=== PATIENT | male | born 1980 | race Caucasian/White ===

== ENCOUNTER → 2024-08-16 | Day surgery (SDC) | payer BC ==
--- NOTE | 2024-08-15 11:48 | EKG ---
Test Date: 2024-08-14 Test Time: 13:47:09 Cableman: VERONICA MEASUREMENT RESULTS: Intervals: Rate: 55 IN: 178 QRSD: 116 QT: 418 QTc: 399 [place]: P: 59 IN: 178 QRS: 69 T: 54 INTERPRETIVE STATEMENTS: Sinus bradycardia with sinus arrhythmia Possible Left atrial enlargement Borderline ECG Compared to ECG 05/27/1999 10:38:00 No significant changes Electronically Signed On 08-15-24 11:48:23 CDT by Guillermo Butler
[~2024-08-16] MED LIST: FENTANYL CITR 100 MCG/2 ML ONE; LIDOCAINE 1% MPF 5 ML VIAL ONE; MIDAZOLAM HCL 2 MG/2 ML INJ ONE; ONDANSETRON 4 MG/2 ML VIAL ONE; propofoL 200 MG/20 ML VIAL IV ONE
[2024-08-16] MEDS: Ringers Lactate 1,000 ML IV ONE (11:27)
[2024-08-16] MEDS: CEFAZOLIN SODIUM 2 GM/VIAL ONE (14:50)
[2024-08-16] MEDS: LIDOCAINE HCL/EPINEPHRINE 20 ML MDV ONE (14:57)
--- NOTE | 2024-08-16 15:05 | P.OP ---
Preoperative diagnosis: LEFT AC Fossa foreign body Postoperative diagnosis: LEFT AC Fossa foreign body Primary procedure: Removal of LEFT AC Fossa foreign body Anesthesia: GETA + Local Estimated blood loss: <2cc Specimen: LEFT AC Fossa foreign body - Berilium Findings: Metallic Fragment adjacent to cephalic vein Complications: None Transferred to: Recovery Room Condition: Good
[2024-08-16 15:35] VITALS: O2SAT 100
[2024-08-16 16:41] VITALS: BP 108/77; TEMP 97
--- NOTE | 2024-08-16 20:35 | OP ---
Date of Procedure: 08/16/2024 Surgeon: Kishore Thomas MD, Preoperative Diagnosis: Left antecubital fossa foreign body. Postoperative Diagnosis: Left antecubital fossa foreign body. Procedure Performed: Removal of left antecubital fossa foreign body. Anesthesia: General endotracheal plus local 1% lidocaine with epinephrine. Estimated Blood Loss: 2 cc. Specimens: Left AC fossa foreign body consistent with a metallic object consistent with possible jb yllium. Findings: Metallic fragment adjacent to the cephalic vein. Complications: None. Disposition: The patient was transferred recovery room in good condition. Procedure In Detail: After informed consent was obtained, patient was brought to the operating room, prepped in the usual fashion. After adequate anesthesia was achieved, I made an elliptical incision around the area where an obvious foreign body was emanating from the left AC fossa. I dissected vishnu n to subcutaneous tissues using sharp and blunt dissection as well as a 15 blade ultimately dissectin g down to find the end of this foreign body, which was adjacent to cephalic vein. I was able to rosalina ve this without injuring the cephalic vein or causing any compromise to this area. Did not require a ny vascular control at this point. I removed the foreign body in its entirety, sent it off for patho logical examination. The area was copiously irrigated. Hemostasis was achieved with minimal electro cautery. I then closed the skin and dermal plane using interrupted 3-0 nylon sutures and sterile zari ssing placed over top. The patient tolerated the procedure without incident or complication and transferred to PACU in good condition. All counts were correct at the end of the case. HAN/REYNOLD Voice ID: [id number] Report ID: [id number]
== END | disposition home or self-care (01) ==
LOC: OR 11:00
PROVIDERS: ATTEND Surgery
PROC: 0JCH0ZZ Extirpation of Matter from Left Lower Arm Subcutaneous Tissue and Fascia, Open Approach (ICD-10-PCS; principal; 2024-08-16 14:00)
DX: M79.5 Residual foreign body in soft tissue (principal)
CPT/HCPCS: 93005; 88304; 10120; J2704; J2003 ×2; J2250; J3010; J2405; J7120; 88300